=== PATIENT | female | born 1990 | race Caucasian/White ===

== ENCOUNTER 2023-12-14 17:04 | Inpatient (IN) | payer OTHER ==
[2023-12-14] MEDS ORDERED: OXYTOCIN 10 UNIT/ML VIAL IM PRN (17:16)
[2023-12-14] MEDS ORDERED: fentaNYL 100 MCG/2 ML VIAL IVP PRN (17:16)
[2023-12-14] MEDS ORDERED: miSOPROStoL 200 MCG TABLET PR PRN (17:16)
[2023-12-14] MEDS ORDERED: TERBUTALINE 1 MG/ML VIAL SUBQ PRN (17:16)
[2023-12-14] MEDS ORDERED: hydrALAZINE INJ 20 MG/ML VIAL IVP PRN ×2 (17:16)
[2023-12-14] MEDS ORDERED: NIFEdipine 10 MG CAPSULE PO PRN (17:16)
[2023-12-14] MEDS ORDERED: LABETALOL 20 MG/4 ML SYRINGE IVP PRN ×3 (17:16)
[2023-12-14] MEDS ORDERED: LACTATED RINGERS 1,000 ML IV PRN (17:16)
[2023-12-14] MEDS ORDERED: miSOPROStoL 200 MCG TABLET BC PRN (17:16)
[2023-12-14] MEDS ORDERED: TRANEXAMIC ACID IN NACL 1,000 MG/100 ML BAG IV PRN (17:16)
[2023-12-14] MEDS ORDERED: METHYLERGONOVINE 0.2 MG/ML VIAL IM PRN (17:16)
[2023-12-14] MEDS ORDERED: CARBOPROST TROMETHAMINE 250 MCG/ML VIAL IM PRN (17:16)
--- NOTE | 2023-12-14 17:45 | HISTORY & PHYSICAL EXAMINATION ---
Admit History - Visit Reason Visit Reason: Membranes rupture (1415 clear fluid) - : 3 Parity: 1 Premature: 0 Ectopic: 0 : 1 Care: positive: [place] [facility] Risk/History: positive: None Complications This : positive: None Smoking Status: Never smoker - Mother's Labs Mother's Blood Type: positive: A Mother's RH: positive: Positive GBS: positive: Group B Step Negative Rubella Status: positive: Immune - Other Maternal History Other Maternal History: 33YO @ 38wks 1 day by sure LMP concordant with 8wk US. Noticed PROM for copious amounts of clear fluid at 1415 today. Was seen in clinic in [place] at 1530for confirmation of PROM and had a reactive NST at that time. D/t [facility] unit on diverChristine burleson was directed to [facility] for labor after conforming availability with [facility] esl instructional assistant. Uncomplicated care with CNMs. Desires low intervention . Planning unmedicated. , Enrico is with her for admission. AB screen-negative RPR- NR HepBsAg- NR Hep C- NR HIV- NR Varicella- Immune GC/CT- Negative/Negative Hct (09/29/2023)-39.2 Plt (09/29/2023)- 263 1hr gtt (09/28/2013)- 86 GBS (12/02/2023)- Negative Meds/Allgy - Home Medications Home Medications: Ambulatory Orders Medication Instructions Recorded Confirmed No Known Home Medications 12/14/23 12/14/23 - Allergies Allergies/Adverse Reactions: Allergies Allergy/AdvReac Type Severity Reaction Status Date / Time No Known Drug Allergies Allergy Verified 12/14/23 18:25 Review of Systems - All Other Systems All Other Systems: reports: Reviewed and negative Physical - Abdominal Exam Vital Signs: BP 127/77, HR 87, T 98.3F Oral Contraction Intensity: positive: Mild Uterine Resting Tone: positive: Soft - Monitoring Heart Rate Baseline: 140's by doppler - Presentation Presentation: positive: Vertex - Vaginal Exam Membranes: positive: Membranes ruptured (CE deferred, not in labor) - Speculum Exam Speculum Exam Performed: positive: No Findings: positive: Gross leak Plan for Labor - Plan For Labor I expect patient to be DC'd or transferred within 96 hours.: Yes Plan for Labor: A: Term primipara PROm x 4 hours without sx of infection No indication for GBS prophylaxis Reassuring FHR by IA P:Admit, routine labor orders. Expectant management of PROM. Labor support PRN. Discussed option for nipple stimulation with breast bump vs pitocin for more active management of PROM. Christine elected breast pump at this time and will be open to pitocin a little later if pumping doesn't help strengthen contractions. Reassess in 2-4 hours.
[2023-12-14] MEDS ORDERED: SODIUM CHLORIDE FLUSH 0.9% 10 ML SYRINGE IVP SCH (18:00)
[2023-12-14 18:17] LABS: BASOPHILS % (AUTO) 0.1 %; EOSINOPHILS # (AUTO) 0.1 10^3/uL (0.0-0.7); EOSINOPHILS % (AUTO) 0.6 %; HCT - HEMATOCRIT 39.9 % (37.0-47.0); HGB - HEMOGLOBIN 13.4 g/dL (12.0-16.0); LYMPHOCYTES # (AUTO) 3.2 10^3/uL (1.5-3.5); LYMPHOCYTES % (AUTO) 23.4 %; MEAN CORPUSCULAR HEMOGLOBIN 30.6 pg (27.0-31.0); MEAN CORPUSCULAR HGB CONC 33.6 g/dL (32.0-36.0); MEAN CORPUSCULAR VOLUME 91.1 fL (81.0-99.0); MEAN PLATELET VOLUME 11.4 fL (7.9-10.8); MONOCYTES # (AUTO) 1.1 10^3/uL (0.0-1.0); MONOCYTES % (AUTO) 7.6 %; NEUTROPHILS # (AUTO) 9.4 10^3/uL (1.5-6.6); PLT - PLATELET COUNT 242 10^3/uL (130-450); RED BLOOD COUNT 4.38 10^6/uL (4.20-5.40); RED CELL DISTRIBUTION WIDTH 12.4 % (12.0-15.0); WHITE BLOOD COUNT 13.8 x10^3/uL (4.8-10.8)
[2023-12-14 19:55] VITALS: O2SAT 98
[2023-12-14] MEDS: OXYTOCIN/SODIUM CHLORIDE 500 ML IV PRN (21:09)
[2023-12-14] MEDS: lidocaine 1% 20 ML MDV ID PRN (21:17)
[2023-12-14] MEDS ORDERED: HYDROCORTISONE 1% CREAM 28 GM TUBE PR PRN (21:36)
--- NOTE | 2023-12-14 21:43 | DELIVERY NOTE ---
Delivery Note - Labor Labor: positive: Spontaneous - Delivery Method Delivery Method: positive: Spontaneous vaginal delivery - Presentation Presentation: positive: Vertex, SU - left occiput anterior - Nuchal Cord Nuchal Cord: positive: None - Anesthetic Anesthetic Type: Anesthetic: positive: Lidocaine - 1% plain Volume: positive: 3cc - Amniotic Fluid Description Amniotic Fluid Description: positive: Clear - Episiotomy Type Episiotomy Type: positive: None - Laceration Laceration: positive: 1st degree - Suture Suture Type: positive: Chromic Suture Size: positive: 3-0 - Delivery Outcome Delivery Outcome: positive: Livebirth - [place] : positive: Placed in direct skin contact with mother, Stimulated, Warmed, [place] used sex: positive: Female - Cord Cord: positive: 3 vessels - Placenta Placenta: positive: Intact, Spontaneous - Estimated Blood Loss Estimated Blood Loss (in cc): 200 - Post Delivery Events Post Delivery Events: positive: No post delivery events - Delivery Comments (Free Text/Narrative) Delivery Comments (Free Text/Narrative): After 10 minute of breast pumping, contractions became strong and regular. Christine moved to the tub where she labored well. Moved out of the tub with the sensation or rectal pressure. She declined a cervical and was presumed to be complete at 2030 with the spontaneous urge to push. Christine was assisted to bed where she pushed on hands and knees and then left side lying position. FHR remained reassuring by intermittent auscultation throughout first and second stage. NSVB of a vigorous baby girl in SU position at 2103. There was no nuchal cord and the shoulders delivered easily, without additional maneuvers. female was placed on maternal abdomen for drying and skin to skin. Apgars 9/9. 30 units of pitocin in 500mL LR was started at 250mL/hr for AMTSL. After cessation of pulsation, the cord was double clamped by CNM and cut by FOB. Hospital cord blood hold sample was collected. Gentle cord traction and a single maternal push led to a spontaneous, Schultze delivery of an apparently intact placenta, membranes and 3VC. Fundus was immediately firm and bleeding minimal. Inspection revealed a short 1st degree perineal laceration which was repaired with 3.0 chromic in the usual fashion under 1% lidocaine local. QBL 200mL. Both mother and baby stable and skin to skin as I left the room.
[2023-12-14] MEDS ORDERED: LACTATED RINGERS 1,000 ML IV SCH (22:00)
[2023-12-14] MEDS: ACETAMINOPHEN 325 MG TABLET PO PRN (22:09)
[2023-12-14] MEDS: KETOROLAC 30 MG/ML VIAL IVP ONE (22:09)
[2023-12-14] MEDS: SODIUM CHLORIDE FLUSH 0.9% 10 ML SYRINGE IVP PRN (22:11)
[2023-12-14] MEDS: WITCH HAZEL/GLYCERIN 1 PAD TOP PRN (23:56)
[2023-12-15] MEDS: IBUPROFEN 600 MG TABLET PO SCH (05:01)
--- NOTE | 2023-12-15 15:01 | Discharge Plan ---
Discharge Plan Problem Reviewed?: Yes Disposition: Home, Self Care Condition: Good Diet: Regular Activity Restrictions: No Restrictions Shower Restrictions: No Driving Restrictions: No Weight Bearing: Full Weight Instruction Topics: Vaginal After, Self Care, Nutrition No Smoking: If you smoke, Please STOP! Call for help. Follow-up with: Ashley Peck DNP [Provider Admit Priv/Credential] - 2 Weeks (Friday, December 28 @ 9:30am)
--- NOTE | 2023-12-15 15:10 | DISCHARGE SUMMARY ---
Discharge Summary Condition at Discharge: Good Discharge Disposition: 01 Home, Self Care - HOSPITAL COURSE Hospital Course: Date of Admission: 12/14/2023 Date of Discharge: 12/15/2023 Diagnosis on Admission: 1. 33yo @ 2. PROM x 4hrs w/o sx of infection 3. GBS negative 4. FHR Category I Diagnosis on Discharge: 1. 33yo s/p TSVD viable female 2. 3. Normal recovery Brief History: She is a patient of [facility] who presented on 12/14/2023 with c/o vaginal leakage of clear fluid. Upon arrival she was found to contract mildly intermittently with soft resting tone and FHR was in a category I pattern. She augmented labor with breast pump and progressed without additional intervention to spontaneously delivery a viable female infant on @ 2103. Apgars were 9/9 at 1 and 5 minutes respectively. EBL 250mL. 1st degree perineal laceration repaired in standard fashion and under sterile conditions. She has been doing well in her course. She is ambulating and tolerating a regular diet. She is urinating without difficulty and her lochia is normal. Her pain is well controlled with oral medications. She will be discharged home today on day #1 with instructions to continue taking her vitamin while and to continue taking ibuprofen and tylenol over the counter as needed for pain management. She intends to follow up with [facility] in 2 weeks or sooner if needed. She has been given precautions to call if she has any worsening fevers, chills, abdominal pain, increased vaginal bleeding or foul smelling vaginal lochia. Physical exam: Normocephalic, atraumatic. Heart RRR w/o M/G/R, lungs CTAB, abdomen soft and nontender with fundus firm at U, perineum intact, light lochia rubra, bilateral LE"s no edema. Mood is good. - ALLERGIES Allergies/Adverse Reactions: Allergies Allergy/AdvReac Type Severity Reaction Status Date / Time No Known Drug Allergies Allergy Verified 12/14/23 18:25 - LABS Result Diagrams: 12/14/23 17:35
--- NOTE | 2023-12-15 15:38 | PHARMACY PROGRESS NOTE ---
- Best Possible Medication History Admit Date and Time: 12/14/23 2100 Processed by: Pharmacy Medications reviewed in ED?: No Medication History completed: Yes Patient Interview: Completed (BY RAW MATERIAL HANDLER XOCHILLE) As the person ultimately responsible for medication therapy, providers are able to order a medication from an existing home medication list in [facility] via the "Reconcile Routine" prior to Confirmation of that medication by product support technician. Such practice is discouraged except when the physician, in their clinical judgment, deems that a medical need exists for a medication without regard to previous use.
[2023-12-15 20:19] VITALS: BP 108/53
--- NOTE | 2023-12-15 20:22 | Labor Flowsheet ---
Labor Flowsheet Datetime Report Generated by CPN: 12/15/2023 20:22 Datetime: 12/15/2023 19:33 VITAL SIGNS NBP Sys/Glendy/Mean (mmHg): 108 : 53 : 66 Pulse: 70 Datetime: 12/14/2023 23:42 VAGINAL EXAM Membranes Ruptured Date/Time: 12/14/2023 14:15 Membranes Rupture Method: Spontaneous Amniotic Fluid Color: Clear Datetime: 12/14/2023 21:58 SpO2 (%): 97 Datetime: 12/14/2023 21:15 Stage of : Datetime: 12/14/2023 21:09 MEDICATIONS Pitocin (milliunits): Started @ 250 ml/hr Medication Comments: per provider Datetime: 12/14/2023 20:39 STAGE 2 Pushing: Urge to Push Pushing Position: Pushing with Contractions
== END 2023-12-15 20:20 | disposition home or self-care (01) | DRG 807 ==
LOC: WFO 17:04 → FBP 17:07 → WFO 21:17
PROVIDERS: ADMIT Nurse Practitioner Obstetrics & Gynecology; ATTEND Nurse Practitioner Obstetrics & Gynecology
PROC: 0HQ9XZZ Repair Perineum Skin, External Approach (ICD-10-PCS; principal; 2023-12-14)
PROC: 10E0XZZ Delivery of Products of Conception, External Approach (ICD-10-PCS; 2023-12-14)
DX: O42.02 Full-term premature rupture of membranes, onset of labor within 24 hours of rupture (principal); Z37.0 Single live birth; Z3A.38 38 weeks gestation of pregnancy; O70.0 First degree perineal laceration during delivery
CPT/HCPCS: 59409; 85025; A9270; 84443; 86850; 86900; 86901